=== PATIENT | female | born 1970 | race Caucasian/White ===

== ENCOUNTER 2019-02-07 11:03 | Outpatient (CLI) | payer OTHER ==
[2019-02-07] MEDS ORDERED: IOVERSOL 320 100 ML VIAL IVP ONE ×2 (11:07→14:45)
[2019-02-07] MEDS ORDERED: IOVERSOL 320 50 ML VIAL ONE (11:07)
[2019-02-07] MEDS ORDERED: IOVERSOL 320 50 ML VIAL PO ONE (14:45)
--- NOTE | 2019-02-07 17:04 | CT Report ---
Reason: RT LQ PAIN Procedure Date: 02/07/2019 Accession Number: [id number] / [id number] Procedure: CT - Abdomen/Pelvis W CPT Code: Final Report FULL RESULT: EXAM: CT ABDOMEN AND PELVIS EXAM DATE: 02/07/2019 12:17 PM. CLINICAL HISTORY: Right lower quadrant pain. COMPARISONS: None. TECHNIQUE: Routine helical CT imaging was performed through the abdomen and pelvis. IV contrast: OPTI 320 90ML. Enteric contrast: No. Reconstructions: Coronal and sagittal. In accordance with CT protocol optimization, one or more of the following dose reduction techniques were utilized for this exam: automated exposure control, adjustment of mA and/or KV based on patient size, or use of iterative reconstructive technique. FINDINGS: Lung Bases: There are small bilateral pleural effusions. Solid organs: The liver, spleen, pancreas, and adrenal glands are without evidence of an enhancing mass. The kidneys are without evidence of a mass or hydronephrosis. Peritoneal Cavity/Bowel: The appendix is normal in appearance. There are no dilated loops of bowel to suggest the presence of an obstruction. There is diverticulosis of the sigmoid colon without evidence of diverticulitis. Pelvic Organs: There is no periaortic or pelvic lymphadenopathy. There is a right adnexal lesion measuring 5.9 x 3.9 cm. This may represent an ovarian neoplasm or endometrioma. There is a small amount of free fluid in the pelvis. Vasculature: There is no evidence of an abdominal aortic aneurysm. Bones: There are bilateral L4 pars defects. There is 7 mm of anterolisthesis of L4 on L5. IMPRESSION: Right adnexal lesion that may represent an ovarian neoplasm or endometrioma with a small amount of free fluid within the pelvis. Recommend pelvic ultrasound for further characterization. Bilateral L4 pars defects with 7 mm of anterolisthesis of L4 on L5. Diverticulosis of the sigmoid colon without evidence of diverticulitis. Small bilateral pleural effusions. RADIA
== END 2019-02-07 11:04 | disposition home or self-care (01) ==
LOC: DI 11:03
PROVIDERS: ATTEND Internal Medicine
DX: R19.03 Right lower quadrant abdominal swelling, mass and lump (principal); M43.06 Spondylolysis, lumbar region; K57.30 Diverticulosis of large intestine without perforation or abscess without bleeding; J90 Pleural effusion, not elsewhere classified
CPT/HCPCS: 74177; Q9967

== ENCOUNTER 2019-02-08 19:52 | Outpatient (CLI) | payer OTHER ==
--- NOTE | 2019-02-08 22:04 | Ultrasound Report ---
Reason: OVARIAN LESION RT OVARY Procedure Date: 02/08/2019 Accession Number: [id number] / [id number] Procedure: US - Pelvic w/Transvaginal CPT Code: Final Report FULL RESULT: EXAM: PELVIC ULTRASOUND EXAM DATE: 02/08/2019 08:26 PM. CLINICAL HISTORY: OVARIAN LESION RT OVARY. COMPARISON: ABDOMEN/PELVIS W/ 02/07/2019 12:16 PM. TECHNIQUE: Realtime transabdominal pelvic scan performed to identify the uterus and adnexa and as an overview of other pelvic structures, followed by transvaginal scan to provide greater detail of the uterus and adnexa, with static image documentation. Doppler evaluation performed due to pelvic pain and clinical concern for right ovarian torsion. FINDINGS: Uterus: Surgically absent. Right Ovary: 5.6 x 4.4 x 3.8. cm, volume 50.2 cc. Normal blood flow. There are several avascular cystic lesions with lacy internal echoes that likely represent hemorrhagic cysts measuring 1.8 x 1.8 x 1.8 cm, 2.2 x 2.5 x 2.5 cm and 2.6 x 2.5 x 2.5 cm. Mildly echogenic homogeneous lesion centrally measures about 2.6 x 2.8 x 2.0 cm. Left Ovary: Surgically absent. Free Fluid: Small amount. Other: None. IMPRESSION: Multiple small cystic right ovarian lesions that have the appearance of hemorrhagic cysts. An additional small echogenic lesion could represent an endometrioma. Small amount of free fluid. Normal ovarian blood flow. Recommend sonographic follow-up in 8-12 weeks. [place]RI[place] The call report notification system was initiated by Dr. Rodger Calix at 09:53 PM on 02/08/2019. The above call report findings were discussed with Dr Chavez by Dr. Rodger Calix at 09:59 PM on 02/08/2019.
== END 2019-02-08 19:53 | disposition home or self-care (01) ==
LOC: DI 19:52
PROVIDERS: ATTEND Internal Medicine
DX: N83.291 Other ovarian cyst, right side (principal); N83.9 Noninflammatory disorder of ovary, fallopian tube and broad ligament, unspecified; Z90.721 Acquired absence of ovaries, unilateral
CPT/HCPCS: 76830; 76856

== ENCOUNTER 2019-03-07 14:30 | Outpatient (CLI) | payer OTHER ==
[2019-03-07] MEDS ORDERED: GADOBUTROL 15 MMOL/15 ML VIAL ONE (14:53)
[2019-03-07] MEDS: GADOBUTROL 15 MMOL/15 ML VIAL IVP ONE (19:19)
--- NOTE | 2019-03-08 12:09 | MRI Report ---
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 COMPARISON: Mammogram dated 06/26/2013 and breast MRI dated 06/13/2013. TECHNIQUE: Dedicated breast coil. STIR, T1 nonfat suppressed, dynamic postcontrast isotropic images as well as diffusion-weighted images are obtained. CONTRAST USED: 9 mL mL Gadavist (gadolinium). POSTPROCESSING: Subtraction dynamic/curve analysis and multiplanar reformations with CAD stream FINDINGS: Background parenchymal enhancement in the right breast which is composed of scattered fibroglandular tissue is minimal. Right breast: There is no suspicious focus of enhancement or suspicious mass. A retropectoral saline implant appears intact. There is no suspicious nonmass enhancement. No suspicious adenopathy in the breast or axilla or internal mammary chain. Left breast: The reconstructed left breast is smaller than the right. The saline implant appears intact. No enhancing mass, abnormal skin enhancement or abnormal axillary or internal mammary lymph nodes are seen. IMPRESSION: Stable MRI examination without suspicious findings. ASSESSMENT: Negative (BI-RADS 1) COMMENT: The literature indicates that a negative dynamic breast MRI has a high sensitivity and specificity for the detection of invasive carcinoma (to a threshold of 5 mm). MRI is not reliably sensitive for detecting ductal carcinoma in situ or large invasive neoplasms with only minimal enhancement (i.e. mucinous carcinoma). Normal-appearing lymph nodes on MRI may contain microscopic tumor. Appropriate clinical mammographic and sonographic followup should be performed if recommended. Negative MRI should not dissuade further evaluation of any suspicious mammographic calcifications and/or worrisome palpable masses.
== END 2019-03-07 14:31 | disposition home or self-care (01) ==
LOC: DI 14:30
PROVIDERS: ATTEND Internal Medicine
DX: Z08 Encounter for follow-up examination after completed treatment for malignant neoplasm (principal); Z85.3 Personal history of malignant neoplasm of breast; R10.31 Right lower quadrant pain
CPT/HCPCS: 77049; A9585

== ENCOUNTER 2019-04-11 14:30 | Outpatient (CLI) | payer OTHER ==
--- NOTE | 2019-04-16 00:33 | Ultrasound Report ---
Reason: ABN FINDINGS ON DX IMAGING OF ABD REGIONS Procedure Date: 04/11/2019 Accession Number: [id number] / [id number] Procedure: US - Pelvic w/Transvaginal CPT Code: Final Report FULL RESULT: EXAM: PELVIC ULTRASOUND WITH DOPPLERS CLINICAL HISTORY: ABN FINDINGS ON DX IMAGING OF ABD REGIONS. COMPARISON: PELVIC W/TRANSVAGINAL 02/08/2019 8:26 PM TECHNIQUE: Realtime transabdominal imaging performed to identify the uterus and adnexa and as an overview of other pelvic structures, followed by transvaginal imaging for better assessment of the endometrium and adnexa, with static image documentation. Color flow imaging and Doppler spectral analysis was performed to evaluate blood flow to the ovary given possible ovarian mass. FINDINGS: Uterus: Surgically absent. Right Ovary: 4.9 x 3.6 x 2.3 cm, volume 22 cc. Interval reduction in the number of hemorrhagic cysts present, with a larger measuring 2.8 cm and a smaller measuring 2.6 cm on the current examination (previously at least 5). The previously noted central echogenic region is no longer appreciated. Arterial and venous blood flow are present. PSV 5.8 cm/sec. RI 0.7. Adnexa are unremarkable. Left Ovary: Surgically absent. Adnexa are unremarkable. Free Fluid: None. Other: None. IMPRESSION: 1. Interval decrease in the number of hemorrhagic cysts in the right ovary, with the largest now measuring 2.8 cm. Interval resolution of the previously seen central echogenic region. 2. Arterial and venous blood flow are present to the ovary. RADIA
== END 2019-04-11 14:31 | disposition home or self-care (01) ==
LOC: DI 14:30
PROVIDERS: ATTEND Internal Medicine
DX: N83.201 Unspecified ovarian cyst, right side (principal); Z90.721 Acquired absence of ovaries, unilateral
CPT/HCPCS: 76830; 76856

== ENCOUNTER 2019-05-17 14:59 | Outpatient (CLI) | payer OTHER ==
[2019-05-17 16:11] LABS: CREATININE 0.7 mg/dL (0.4-1.0)
== END 2019-05-17 15:00 | disposition home or self-care (01) ==
LOC: LAB 14:59
PROVIDERS: ATTEND Internal Medicine
DX: Z79.899 Other long term (current) drug therapy (principal)
CPT/HCPCS: 36415; 82565

== ENCOUNTER 2019-05-22 20:12 | Outpatient (CLI) | payer OTHER ==
--- NOTE | 2019-05-24 06:16 | Ultrasound Report ---
Reason: ADNEXAL MASS Procedure Date: 05/22/2019 Accession Number: [id number] / [id number] Procedure: US - Pelvic w/Transvaginal CPT Code: Final Report FULL RESULT: EXAM: PELVIC ULTRASOUND EXAM DATE: 05/22/2019 09:03 PM. CLINICAL HISTORY: ADNEXAL MASS. COMPARISON: PELVIC W/TRANSVAGINAL 04/11/2019 3:11 PM. TECHNIQUE: Realtime transabdominal pelvic scan performed to identify the uterus and adnexa and as an overview of other pelvic structures, followed by transvaginal scan to provide greater detail of the uterus and adnexa, with static image documentation. FINDINGS: Uterus: Hysterectomy Right Ovary: 4.0 x 1.9 x 2.2 cm, volume 8.8 cc. Normal echotexture and blood flow. Left Ovary: Oophorectomy Free Fluid: None. Other: None. IMPRESSION: Resolution of complex/hemorrhagic right ovarian cysts RADIA
== END 2019-05-22 20:13 | disposition home or self-care (01) ==
LOC: DI 20:12
PROVIDERS: ATTEND Obstetrics & Gynecology
DX: R19.09 Other intra-abdominal and pelvic swelling, mass and lump (principal)
CPT/HCPCS: 76830; 76856

== ENCOUNTER 2019-11-09 09:17 | Emergency (ER) | payer OTHER ==
[2019-11-09] MEDS ORDERED: BUFFERED LIDOCAINE 10 ML SYRINGE SUBQ STA (09:44)
--- NOTE | 2019-11-09 10:17 | ED Physician Documentation ---
History of Present Illness - Stated complaint Stated Complaint: DOG BITE - Chief complaint Chief Complaint: Wound - History obtained from History obtained from: Patient, Family - History of Present Illness Timing: Today - Additonal information Additional information: 49-year-old female went to kiss her 6-year-old Greyhound rescue dog when it awoke it reared its head bit her in the face and arm. She states the attack was unexpected but that she knows this dog has some issues. She has had prior greyhounds without issues. This dog was apparently from a [email or web address] racing rescue.The dog is up-to-date on his immunizations. Review of Systems Constitutional: denies: Fever Eyes: denies: Decreased vision Ears: denies: Ear pain Nose: denies: Congestion Throat: denies: Sore throat Respiratory: denies: Dyspnea GI: denies: Vomiting PD PAST MEDICAL HISTORY - Past Medical History Cardiovascular: None Respiratory: None Neuro: None Endocrine/Autoimmune: None GI: None OBSTETRICS TECH: None : None HEENT: None Psych: None Musculoskeletal: None Derm: None - Past Surgical History Past Surgical History: No /OBSTETRICS TECH: Hysterectomy, Mastectomy - Present Medications Home Medications: Ambulatory Orders Medication Instructions Recorded Confirmed Amox/Clav 875/125 [Augmentin] 1 each PO Q12H #10 tablet 11/09/19 Fluconazole [Diflucan] 150 mg PO ONCE #1 tablet 11/09/19 - Allergies Allergies/Adverse Reactions: Allergies Allergy/AdvReac Type Severity Reaction Status Date / Time etodolac Allergy Rash Verified 11/09/19 09:49 - Social History Does the pt smoke?: No Smoking Status: Never smoker Does the pt drink ETOH?: Yes ETOH Use: Other Does the pt have substance abuse?: No - Immunizations Immunizations: TDAP >10years/unknown PD ED PE NORMAL - Vitals Vital signs reviewed: Yes (Hypertensive) - General General: Alert and oriented X 3, No acute distress, Well developed/nourished - HEENT HEENT: PERRL, EOMI, Other (There are lacerations puncture wounds to the right cheek a linear superficial laceration just below the eye a abrasion with tissue avulsion on the cheek and medial to that a puncture wound consistent with a bite bleeding is well controlled.) - Neck Neck: Supple, no meningeal sign, No bony TTP - Respiratory Respiratory: No respiratory distress - Derm Derm: Normal color, Warm and dry, No rash - Extremities Extremities: Other (There is a puncture wound and superficial laceration to the left forearm as well. There is bruising present.) - Neuro Neuro: Alert and oriented X 3, rn admission 2-12 intact, No motor deficit, No sensory deficit, Normal speech Eye Opening: Spontaneous Motor: Obeys Commands Verbal: Oriented GCS Score: 15 - Psych Psych: Normal mood, Normal affect PD ED PE EXPANDED - HEENT HEENT Visual: 1 - laceration (superficial 2cm) 2 - laceration (puncture wound 1cm) 3 - laceration (skin flap tissue covers defect) Results - Vitals Vitals: Vital Signs - 24 hr 11/09/19 11/09/19 09:24 09:35 Temperature 36.8 C 36.8 C Heart Rate 73 73 Respiratory 16 16 Rate Blood Pressure 130/81 H 130/81 H O2 Saturation 99 99 Oxygen O2 Source Room air Procedures - Laceration (location) face Length in cm: 3 Wound type: Flap, Superficial, Clean Neurovascular status: Sensory intact, Motor intact, Vascular intact Anesthesia: Lidocaine 1%, With bicarb Wound Preparation: Hibiclens, Irrigated copiously NS, Wound explored, To the base, Multiple flaps aligned Skin layer closure: Nylon, Dermabond, Interrupted, Size #-0 - enter number (6-0 ), Sutures - enter # (2) Other: Patient tolerated well, No complications, Neurovascular intact, Dressing applied, Tetanus booster given Complexity: Simple PD MEDICAL DECISION MAKING - ED course Complexity details: considered differential, d/w patient, d/w family ED course: Previously well 49-year-old female with a dog bite laceration to her right cheek and left forearm as wounds cleansed and we are able to repair the wounds on the face with Dermabond and placement of a suture into 2 separate lacerations. The wounds are cleansed thoroughly and we will place patient on some antibiotic prophylaxis. Departure - Departure Disposition: 01 Home, Self Care Clinical Impression: Animal bite with open wound, Laceration Condition: Stable Instructions: ED Bite Dog, ED Laceration Facial Skin Glue, ED Laceration Facial Sutr Tape Follow-Up: Eva Chavez MD [Primary Care Provider] - Prescriptions: Amox/Clav 875/125 [Augmentin] 1 each PO Q12H #10 tablet Fluconazole [Diflucan] 150 mg PO ONCE #1 tablet Comments: The sutures to the face will need to be removed in about 5 days
[2019-11-09] MEDS ORDERED: TETANUS/DIPHTHERIA/PERTUSSIS 0.5 ML SYRINGE IM ONE (10:24)
[2019-11-09 11:11] VITALS: BP 104/76
== END 2019-11-09 11:13 | disposition home or self-care (01) ==
LOC: ED 09:17
DX: S01.451A Open bite of right cheek and temporomandibular area, initial encounter (principal); S51.852A Open bite of left forearm, initial encounter; W54.0XXA Bitten by dog, initial encounter; Y93.K9 Activity, other involving animal care; Z23 Encounter for immunization
CPT/HCPCS: 12013; 90471; 99283; 99284

== ENCOUNTER 2023-08-04 15:44 | Outpatient (CLI) | payer OTHER | END 2023-08-04 15:45 | disposition home or self-care (01) | LOC: LAB 15:44 | PROVIDERS: ATTEND Obstetrics & Gynecology | DX: E55.9 Vitamin D deficiency, unspecified (principal) | CPT/HCPCS: 36415; 82306 ==

== ENCOUNTER 2023-12-19 10:51 | Outpatient (CLI) | payer OTHER ==
[2023-12-19 18:08] LABS: BASOPHILS # (AUTO) 0.1 10^3/uL (0.0-0.1); BASOPHILS % (AUTO) 0.7 %; EOSINOPHILS # (AUTO) 0.3 10^3/uL (0.0-0.7); EOSINOPHILS % (AUTO) 3.1 %; HCT - HEMATOCRIT 43.2 % (37.0-47.0); HGB - HEMOGLOBIN 14.6 g/dL (12.0-16.0); LYMPHOCYTES # (AUTO) 2.5 10^3/uL (1.5-3.5); LYMPHOCYTES % (AUTO) 30.6 %; MEAN CORPUSCULAR HEMOGLOBIN 32.2 pg (27.0-31.0); MEAN CORPUSCULAR HGB CONC 33.8 g/dL (32.0-36.0); MEAN CORPUSCULAR VOLUME 95.4 fL (81.0-99.0); MEAN PLATELET VOLUME 11.3 fL (7.9-10.8); MONOCYTES # (AUTO) 0.8 10^3/uL (0.0-1.0); MONOCYTES % (AUTO) 10.2 %; NEUTROPHILS # (AUTO) 4.4 10^3/uL (1.5-6.6); NEUTROPHILS % (AUTO) 55.2 %; PLT - PLATELET COUNT 306 10^3/uL (130-450); RED BLOOD COUNT 4.53 10^6/uL (4.20-5.40); RED CELL DISTRIBUTION WIDTH 12.7 % (12.0-15.0)
[2023-12-19 18:28] LABS: ALBUMIN 4.1 g/dL (3.2-5.5); ALBUMIN/GLOBULIN RATIO 1.5 (1.0-2.2); BILIRUBIN,TOTAL 0.5 mg/dL (0.2-1.0); CALCIUM 9.7 mg/dL (8.5-10.3); CREATININE 0.7 mg/dL (0.6-1.3); POTASSIUM 4.1 mmol/L (3.5-4.5); TOTAL PROTEIN 6.9 g/dL (6.4-8.9)
== END 2023-12-19 10:52 | disposition home or self-care (01) ==
LOC: LAB.N 10:51
PROVIDERS: ATTEND Family Medicine
DX: J32.9 Chronic sinusitis, unspecified (principal)
CPT/HCPCS: 36415; 80053; 85025; 85651